=== PATIENT | female | born 1965 ===

== ENCOUNTER 2018-10-14 13:17 | Emergency (ER) | payer BC, OTHER ==
[2018-10-14 13:24] VITALS: O2SAT 100
--- NOTE | 2018-10-14 14:13 | C.PDOC ---
History Of Present Illness 53 y/o female presents to the ED complaining of colicky left-sided abdominal pain and chronic constipation for the past 5 days. No bowel movement in the last few days. Patient otherwise denies nausea, vomiting, diarrhea, fever, or bloody stools. Time Seen by Provider: 10/14/18 14:05 Chief Complaint (Nursing): Abdominal Pain History Per: Patient History/Exam Limitations: no limitations Onset/Duration Of Symptoms: Days Current Symptoms Are (Timing): Still Present Past Medical History Reviewed: Historical Data, Nursing Documentation, Vital Signs Vital Signs: Last Vital Signs Temp 97.6 F 10/14/18 13:22 Pulse 71 10/14/18 13:22 Resp 20 10/14/18 13:22 BP 154/82 H 10/14/18 13:22 Pulse Ox 100 10/14/18 13:22 - Medical History PMH: Asthma, Diabetes, HTN Denies: Chronic Kidney Disease Surgical History: Cholecystectomy Family History: States: Unknown Family Hx - Social History Hx Alcohol Use: No Hx Substance Use: No Review Of Systems Except As Marked, All Systems Reviewed And Found Negative. Constitutional: Negative for: Fever, Chills Gastrointestinal: Positive for: Abdominal Pain (left side), Constipation. Negative for: Nausea, Vomiting, Diarrhea, Hematochezia Genitourinary: Negative for: Dysuria, Frequency, Incontinence Physical Exam - Physical Exam Appears: Non-toxic, No Acute Distress Skin: Normal Color, Warm, Dry Head: Atraumatic, Normacephalic Eye(s): bilateral: Normal Inspection, PERRL, EOMI Neck: Normal ROM Cardiovascular: Rhythm Regular, No Murmur Respiratory: Normal Breath Sounds, No Accessory Muscle Use Gastrointestinal/Abdominal: Soft, No Tenderness, No Guarding, No Rebound, Other (Abdomen obese) Extremity: Bilateral: Atraumatic, Normal Color And Temperature Neurological/Psych: Oriented x3, Normal Speech ED Course And Treatment - Laboratory Results Result Diagrams: 10/14/18 15:23 10/14/18 15:23 Lab Interpretation: Normal (ua neg.) Urine POC: Negative O2 Sat by Pulse Oximetry: 100 (RA) Pulse Ox Interpretation: Normal - Radiology CXR: Interpreted by Me CXR Interpretation: Yes: No Acute Disease - Other Rad abd x 2 X-Ray: Interpreted by Me (+ increased stool/gas pattern, no obstr/FA) Medical Decision Making Medical Decision Making: Initial Plan: --CMP --Lipase --CBC --UA --Urine preg --Obstructive series x-ray acute on chronic constipation/abd colic ? dietary issues Linzes with ? efficacy Gentle laxative tonight and re-eval Disposition Doctor Will See Patient In The: Office Counseled Patient/Family Regarding: Studies Performed, Diagnosis - Disposition Disposition: HOME/ ROUTINE Disposition Time: 16:02 Condition: GOOD Forms: [facility] ([place]) - Clinical Impression Clinical Impression: Colicky LLQ abdominal pain - Scribe Statement The provider has reviewed the documentation as recorded by the Godfrey Perez Provider Attestation: All medical record entries made by the Godfrey were at my direction and personally dictated by me. I have reviewed the chart and agree that the record accurately reflects my personal performance of the history, physical exam, medical decision making, and the department course for this patient. I have also personally directed, reviewed, and agree with the discharge instructions and disposition.
[2018-10-14 14:20] LABS: HCG,QUALITATIVE URINE NEGATIVE (NEGATIVE)
[2018-10-14 14:22] LABS: SQUAMOUS EPITHIAL 2 /hpf (0-5); URINE BACTERIA RARE (<OCC); URINE BILIRUBIN NEGATIVE (NEGATIVE); URINE BLOOD NEGATIVE (NEGATIVE); URINE CLARITY Clear (Clear); URINE COLOR Straw (YELLOW); URINE GLUCOSE (UA) 3+ mg/dL (Normal); URINE LEUKOCYTE ESTERASE NEG Leu/uL (Negative); URINE PROTEIN NEGATIVE (NEGATIVE); URINE UROBILINOGEN NORMAL mg/dL (0.2-1.0)
[2018-10-14 15:35] LABS: BASO # 0.1 K/uL (0.0-0.2); BASO % 0.9 % (0.0-2.0); EOS # 0.2 K/uL (0.0-0.7); EOS % 2.3 % (0.0-4.0); HEMOGLOBIN 11.8 g/dL (11.0-16.0); LYMPH # 1.6 K/uL (1.0-4.3); LYMPH % 22.9 % (20.0-40.0); MEAN CELL VOLUME 73.9 fL (81.0-99.0); MEAN CORPUSCULAR HEMOGLOBIN 23.8 pg (27.0-31.0); MEAN CORPUSCULAR HGB CONC 32.2 g/dL (33.0-37.0); MEAN PLATELET VOLUME 7.9 fL (7.2-11.7); MONO # 0.5 K/uL (0.0-0.8); NEUT # 4.7 K/uL (1.8-7.0); NEUT % 66.9 % (50.0-75.0); RBC 4.97 Mil/uL (3.80-5.20); RED CELL DISTRIBUTION WIDTH 16.3 % (11.5-14.5)
[2018-10-14 15:40] LABS: ALB/GLOB RATIO 1.5 (1.0-2.1); ALBUMIN 4.4 g/dL (3.5-5.0); ALT/SGPT 132 U/L (9-52); AST/SGOT 111 U/L (14-36); BLOOD UREA NITROGEN 8 mg/dL (7-17); GFR NON-AFRICAN AMERICAN > 60; LIPASE 141 U/L (23-300)
--- NOTE | 2018-10-14 16:09 | RAD ---
Date of service: 10/14/2018 PROCEDURE: Radiographs of the chest and abdomen (obstructive series) HISTORY: colicky belly pain, constip COMPARISON: No prior. TECHNIQUE: AP radiograph of the chest, with upright and supine radiographs of the abdomen. FINDINGS: CHEST: Lungs: Clear. Cardiovascular: Normal size heart. No pulmonary vascular congestion. No discernible aortic atherosclerotic calcification present Pleura: No pleural fluid. No pneumothorax. Other findings: None. ABDOMEN AND PELVIS: Bowel: There is a large amount of stool seen within the colon consistent with fecal retention/constipation. No evidence acute mechanical bowel obstruction. Free air: None. Bones: Unremarkable. Other findings: Metallic clips right upper quadrant of the abdomen consistent with prior cholecystectomy. IMPRESSION: Findings consistent with constipation.. No evidence of mechanical bowel obstruction. No acute cardiopulmonary disease.
[2018-10-14 16:32] VITALS: BP 147/76; PULSE 65; RESP 18; TEMP 97.7
== END 2018-10-14 16:39 | disposition home or self-care (01) ==
LOC: C.ER 13:17
DX: R10.84 Generalized abdominal pain (principal); I10 Essential (primary) hypertension; E11.9 Type 2 diabetes mellitus without complications; Z87.891 Personal history of nicotine dependence